=== PATIENT | female | born 1940 | race Caucasian/White ===

== ENCOUNTER → 2019-12-05 | Outpatient (CLI) | payer MEDICARE ==
--- NOTE | 2019-12-05 12:20 | RAD ---
Right lower extremity venous Doppler ultrasound History: Right leg pain and swelling. Comparison: None. Procedure: Color flow Doppler, Doppler spectral analysis, and 2D images are obtained with and without compression in the area of the common femoral vein, superficial femoral vein - femoral vein junction, main femoral vein (superficial femoral vein) and popliteal vein. Veins of the proximal calf are also imaged. Findings: There is normal color flow, augmentation, and compressibility of all visualized vein segments. No evidence of deep venous thrombus is present. There is a complex collection lateral to the popliteal fossa measuring 5.1 x 3.7 x 1.6 cm. The lesion is mostly hypoechoic. Small internal echogenicities may be calcifications. Color Doppler interrogation is negative. Chronic hematoma is a consideration. More inferiorly in the lateral calf there is relatively anechoic fluid measuring 7.7 x 3 x 2.1 cm. Finding could be a dissected popliteal fossa cyst or a seroma. IMPRESSION: Right lower extremity is negative for DVT. Electronically signed by: Charbel Mcgarry MD (12/05/2019 12:17 PM) [id number]
== END | disposition home or self-care (01) ==
LOC: US 11:26
PROVIDERS: ATTEND Family Medicine
DX: M79.661 Pain in right lower leg (principal); R22.41 Localized swelling, mass and lump, right lower limb
CPT/HCPCS: 93971

== ENCOUNTER 2019-12-09 15:19 | Emergency (ER) | payer MEDICARE ==
[~2019-12-09] VITALS: Ht 165.1 cm; Wt 73.6 kg
[2019-12-09] MEDS ORDERED: LIDOCAINE 1%/EPI 1:100,000 20 ML VIAL. IJ ONE (15:45)
[2019-12-09] MEDS ORDERED: DIPHTH,PERTUSS(ACELL),TET TOX 0.5 ML DISP.SYRIN. VAX IM ONE (15:45)
--- NOTE | 2019-12-09 15:50 | PHYS DOC ---
Past History Past Medical History: Hypertension, Other Additional Past Medical Histor: Blood clots, Cardiac Past Surgical History: Pacemaker Alcohol Use: None Adult General Chief Complaint Chief Complaint: MECHANICAL FALL HPI HPI Patient is a 78-year-old female on [facility] presents to the ER secondary to a fall. Patient states that she was in the parking lot at [facility] and she lost her balance. She has pain in the left hand and the laceration on t he posterior aspect. No obvious deformities or numbness or tingling. She also points of contusion/hematoma to the right hip but does not have pain with ambulation. Her tetanus is not up-to-date. She did not strike her head. Chest pain, shortness of breath, neck pain, back pain, other extremity pain. Review of Systems Review of Systems All other ROS is negative unless otherwise stated in HPI Allergies Allergies Allergies Coded Allergies Type Severity Reaction Last Updated Verified clopidogrel Allergy Intermediate 12/09/19 Yes Sulfa (Sulfonamide Antibiotics) Allergy Unknown 12/09/19 Yes penicillin G Allergy Unknown 12/09/19 Yes Physical Exam Physical Exam See above Constitutional: Well developed, well nourished, no acute distress, non-toxic appearance. [] HENT: Normocephalic, atraumatic, bilateral external ears normal, oropharynx mois t, no oral exudates, nose normal. [] Eyes: PERRLA, EOMI, conjunctiva normal, no discharge. [] Neck: Normal range of motion, no tenderness, supple, no stridor. [] Cardiovascular:Heart rate regular rhythm, no murmur [] Lungs & Thorax: Bilateral breath sounds clear to auscultation [] Abdomen: Bowel sounds normal, soft, no tenderness, no masses, no pulsatile masses. [] Skin: There is a 4 similar laceration to the posterior aspect of the left hand along with contusion noted. Back: No tenderness, no CVA tenderness. [] Extremities: Normal except the left hand as described under skin and the right hip which has a hematoma and tenderness on the lateral aspect. Hematoma is approximately the size of a baseball. There is also swelling to the right elbow that is consistent with olecranon bursitis versus swelling from a fracture. Neurologic: Alert and oriented X 3, normal motor function, normal sensory function, no focal deficits noted. [] Psychologic: Affect normal, judgement normal, mood normal. [] Current Patient Data Vital Signs Vital Signs Date Time Temp Pulse Resp B/P (MAP) Pulse Ox O2 Delivery O2 Flow Rate FiO2 12/09/19 15:31 97.8 106 18 157/79 (105) 99 Room Air EKG EKG [] Radiology/Procedures Radiology/Procedures []4 cm irregular laceration to the left posterior hand was anesthetized with 1% lidocaine with epinephrine, 3 mL. Area was cleaned by nursing staff. Patient laceration was closed with 4. 0 Ethilon simple interrupted sutures, #6. The remainder of the laceration was closed using Steri-Strips and a dressing was applied by nursing staff. Patient tolerated well. Preliminary interpretation by ED doc shows negative right hip, right elbow, and left hand xrays. Course & Med Decision Making Course & Med Decision Making X-ray left hand, x-ray hip, tenderness, or laceration Xrays negative per ED interpret. F/u sooner if pain worsens. Able to ambulate without pain and no pain with ROM right elbow.. Dragon Disclaimer Dragon Disclaimer This electronic medical record was generated, in whole or in part, using a voice recognition dictation system. Departure Departure: Impression: Primary Impression: Fall Additional Impressions: Laceration of left hand Contusion of left hand Hip hematoma, right Swelling of right elbow Disposition: 01 HOME, SELF-CARE Condition: STABLE Referrals: SAKINA ZENDEJAS MD (PCP) Follow up in 7-10 days for suture removal. Patient Instructions: Laceration Care, Adult Additional Instructions: If you elbow start hurting worse please follow up sooner. Problem Qualifiers JOANN MOLINA DO Dec 09, 2019 15:50
[2019-12-09 17:54] VITALS: BP 143/70
--- NOTE | 2019-12-09 18:34 | RAD ---
Exam: Right elbow 2 views INDICATION: Pain with fall TECHNIQUE: Frontal and lateral views of the right elbow Comparisons: None FINDINGS: Soft tissue swelling overlying the olecranon. No acute fractures identified. Bone mineralization is normal. Joint spaces are well-maintained. IMPRESSION: Soft tissue swelling overlying the olecranon, may relate to edema or bursitis. No acute osseous abnormality identified. Electronically signed by: Erik Carter MD (12/09/2019 6:32 PM) [id number]
--- NOTE | 2019-12-09 18:52 | RAD ---
Exam: Left hand 3 views INDICATION: Pain with fall TECHNIQUE: Frontal, lateral and oblique views of the left and Comparisons: None FINDINGS: Mild soft tissue swelling overlying the dorsum of the metacarpals. Bone mineralization is normal. No acute or healed fractures. 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 IMPRESSION: Soft tissue swelling overlying the dorsum of the metacarpals without underlying osseous abnormality. Electronically signed by: Erik Carter MD (12/09/2019 6:48 PM) [id number]
--- NOTE | 2019-12-09 19:17 | RAD ---
Exam: Right hip 2 views INDICATION: Pain with fall TECHNIQUE: Frontal and frog-leg lateral views of the right hip Comparisons: None FINDINGS: Bone mineralization is normal. There is moderate osteophytic change at the hip joint. Mild irregularity noted at the superior pubic ramus on frontal view. Soft tissues are unremarkable. IMPRESSION: Mild cortical irregularity noted along the superior aspect of the superior pubic rami on the right seen only on frontal view. These findings are nonspecific however given history of trauma, CT would better evaluate for a nondisplaced fracture. Electronically signed by: Erik Carter MD (12/09/2019 7:15 PM) [id number]
== END 2019-12-09 18:13 | disposition home or self-care (01) ==
LOC: ER 15:19
DX: S61.412A Laceration without foreign body of left hand, initial encounter (principal); S70.01XA Contusion of right hip, initial encounter; R22.31 Localized swelling, mass and lump, right upper limb; I10 Essential (primary) hypertension; Z95.0 Presence of cardiac pacemaker; Z88.0 Allergy status to penicillin; Z88.2 Allergy status to sulfonamides; Z88.8 Allergy status to other drugs, medicaments and biological substances; W01.0XXA Fall on same level from slipping, tripping and stumbling without subsequent striking against object, initial encounter; Y93.89 Activity, other specified; Y92.89 Other specified places as the place of occurrence of the external cause; Y99.8 Other external cause status
CPT/HCPCS: 12002; 73080; 73130; 73502; 90471; 90715; 99284

== ENCOUNTER → 2020-06-24 | Outpatient (CLI) | payer MEDICARE ==
[2020-06-24 11:10] LABS: BASO % 0 % (0-3); EOS # 0.3 x10^3/uL (0.0-0.7); EOS % 3 % (0-3); HEMATOCRIT 36.6 % (36.0-47.0); HEMOGLOBIN 12.1 g/dL (12.0-15.5); LYMPH # 2.5 x10^3/uL (1.0-4.8); LYMPH % 30 % (24-48); MEAN CORPUSCULAR HEMOGLOBIN 32 pg (25-35); MEAN CORPUSCULAR HGB CONC 33 g/dL (31-37); MEAN CORPUSCULAR VOLUME 96 fL (79-100); MONO # 0.8 x10^3/uL (0.0-1.1); MONO % 10 % (0-9); NEUT # 4.6 x10^3uL (1.8-7.7); NEUT % 57 % (31-73); PLATELET COUNT 269 x10^3/uL (140-400); RED CELL DISTRIBUTION WIDTH 14.6 % (11.5-14.5); WHITE BLOOD COUNT 8.2 x10^3/uL (4.0-11.0)
[2020-06-24 11:13] LABS: ALBUMIN/GLOBULIN RATIO 0.9 (1.0-1.7); CALCIUM 9.9 mg/dL (8.5-10.1); CREATININE 1.4 mg/dL (0.6-1.0); GFR 36.1; POTASSIUM 4.4 mmol/L (3.5-5.1); TOTAL BILIRUBIN 0.3 mg/dL (0.2-1.0); TOTAL PROTEIN 8.4 g/dL (6.4-8.2)
== END ==
LOC: LAB 08:41
PROVIDERS: ATTEND Internal Medicine Interventional Cardiology
DX: I10 Essential (primary) hypertension (principal); E78.5 Hyperlipidemia, unspecified
CPT/HCPCS: 36415; 80053; 80061; 85025